=== PATIENT | male | born 1980 | race Caucasian/White ===

== ENCOUNTER 2021-10-26 06:58 | Day surgery (SDC) | payer OTHER ==
[2021-10-25 10:39] LABS: CLARITY,URINE CLEAR (Clear); COLOR,URINE YELLOW (Yellow); GLUCOSE, URINE NEGATIVE (Neg); KETONES,URINE NEGATIVE (Neg); LEUKOCYTE ESTERASE ,URINE NEGATIVE (Neg); NITRITES, URINE NEGATIVE (Neg); OCCULT BLOOD,URINE NEGATIVE (Neg); PROTEIN,URINE NEGATIVE (Neg); UROBILINOGEN,URINE 0.2 E.U/dL (0.2-1.0)
[2021-10-25 10:47] LABS: UA COLLECTION TYPE NON-SPECIFIED
[2021-10-25 11:04] LABS: EOSINOPHILS # (AUTO) 0.2 X10'3 (0-0.9); EOSINOPHILS % (AUTO) 3.9 % (0-6); LYMPHOCYTES # (AUTO) 1.4 X10'3 (1.1-4.8); LYMPHOCYTES % (AUTO) 27.7 % (21-51); MEAN CORPUSCULAR HEMOGLOBIN 31.4 PG (27.0-31.0); MEAN CORPUSCULAR HGB CONC 34.6 g/dL (33.0-36.5); MEAN CORPUSCULAR VOLUME 90.5 FL (78-98); MEAN PLATELET VOLUME 8.6 FL (7.4-10.4); MONOCYTES # (AUTO) 0.4 X10'3 (0-0.9); MONOCYTES % (AUTO) 8.2 % (2-12); NEUTROPHILS # (AUTO) 2.9 X10'3 (1.8-7.7); NEUTROPHILS % (AUTO) 59.2 % (42-75); PRE OP HEMATOCRIT 42.6 % (42.0-52.0); PRE OP HEMOGLOBIN 14.8 g/dL (14.0-17.9); PRE OP PLATELET COUNT 232 X10'3 (140-440); RED CELL DISTRIBUTION WIDTH 12.5 % (11.5-14.5)
[2021-10-25 13:22] LABS: ALBUMIN 4.2 G/DL (3.4-5.0); ALBUMIN/GLOBULIN RATIO 1.6 (1.1-1.5); ALKALINE PHOSPHATASE 68 IU/L (46-116); BLOOD UREA NITROGEN 18 MG/DL (7-18); BUN/CREATININE RATIO 13.3 (5.4-32.0); CALCIUM 8.6 MG/DL (8.5-10.1); CHLORIDE 106 MMOL/L (99-107); CREATININE 1.35 MG/DL (0.60-1.10); PRE OP ALT 30 U/L (30-65); PRE OP ANION GAP 11 (8-16); PRE OP AST 21 U/L (10-37); PRE OP BILIRUB, TOTAL 0.5 MG/DL (0.0-1.0); PRE OP GLUCOSE 100 MG/DL (70-104); PRE OP POTASSIUM 4.7 MMOL/L (3.4-5.1); PRE OP SODIUM 143 MMOL/L (135-145); TOTAL CARBON DIOXIDE 26.5 MMOL/L (24-32); TOTAL PROTEIN 6.9 G/DL (6.4-8.2); eGFR 59 ML/MIN
[~2021-10-26] VITALS: Ht 188 cm; Wt 91.3 kg
[2021-10-26] VITALS (9 sets, daily range): BP systolic 114–131; BP diastolic 78–90
[~2021-10-26 06:58] MED LIST: ACET-812 PO; IBUP-1986 PO; cefazolin/dext.iso 2gm/50ml IV ONE; famotidine 20mg tablet PO ONE; ringers solution, lacted 1,000 ML IV SCH
[2021-10-26] MEDS ORDERED: bacitracin 15gm ointment TP ONE (08:30)
[2021-10-26] MEDS ORDERED: meperidine/PF 25mg/ml syringe IV PRN ×2 (08:40)
[2021-10-26] MEDS ORDERED: labetalol 20mg/4ml (5mg/ml) syringe IV PRN (08:40)
[2021-10-26] MEDS ORDERED: ROPIVAcaine 0.2%/PF PUMP/bolus 545 ML POPLITEAL SCH (08:40)
[2021-10-26] MEDS ORDERED: proCHLORperazine 10 MG/2 ml inj IV PRN (08:40)
[2021-10-26] MEDS ORDERED: morphine 2 MG/ML inj. syringe IV PRN (08:40)
[2021-10-26] MEDS ORDERED: ondansetron/PF 4mg/2ml inj IV PRN (08:40)
[2021-10-26] MEDS ORDERED: ringers solution, lacted 1,000 ML IV SCH (08:40)
[2021-10-26] MEDS ORDERED: acetaminophen 1,000mg/100ml IV 100 ML IV PRN (08:40)
[2021-10-26] MEDS ORDERED: hydrALAZINE 20mg/ml inj. IV PRN (08:40)
[2021-10-26] MEDS ORDERED: ROPIVAcaine 0.2% (10 MG/5 ML) BOLUS INJECTION POPLITEAL PRN (08:40)
[2021-10-26] MEDS ORDERED: midazolam 1 mg/ML 2ml injection ONE (08:47)
[2021-10-26] MEDS ORDERED: fentaNYL /PF 50mcg/ml 5ml ampule ONE (08:50)
[2021-10-26] MEDS ORDERED: sevoflurane 250ml liquid IH ONE (08:51)
[2021-10-26] MEDS ORDERED: dexamethasone sod phosphate 4mg/ml inj. ONE ×2 (09:50→09:51)
[2021-10-26] MEDS ORDERED: ROPIVAcaine 0.5% (5mg/ml) 30ml vial ONE (09:50)
[2021-10-26] MEDS ORDERED: ondansetron/PF 4mg/2ml inj ONE (09:50)
[2021-10-26] MEDS ORDERED: LIDOcaine 2% (20mg/ml) 5ml vial ONE (09:50)
[2021-10-26] MEDS ORDERED: propofol inj 20 ML IV ONE (09:50)
[2021-10-26] MEDS ORDERED: 0.9 % SODIUM CHLORIDE 10 ML VIAL ONE ×2 (09:51)
--- NOTE | 2021-10-26 11:07 | NUR ---
Received from OR via [facility] IN STABLE CONDITION , accompanied by Anesthesiologist and RATE SETTER report given by RATE SETTER AND Anesthesiolgist. Addendum: 10/26/21 at 1205 by Gela Henning RN Amended: Links added.
[2021-10-26] MEDS: meperidine/PF 25mg/ml syringe IV PRN ×2 (11:18→11:33)
[2021-10-26] MEDS: morphine 4 MG/ML inj SYRINge IV PRN ×2 (11:49→12:15)
[2021-10-26] MEDS ORDERED: oxyCODONE IR 5mg (immed. release) tablet PO ONE (12:15)
--- NOTE | 2021-10-26 12:47 | NUR ---
PATIENT DISCHARGED FROM PACU IN STABLE CONDITION AFTER WRITTEN AND VERBAL DISCHARGE INSTRUCTIONS GIVEN. PATIENT GAVE VERBAL UNDERSTANDING OF INSTRUCTIONS GIVEN. PATIENT LEFT FACILITY VIA WHEELCHAIR WITH RN. Addendum: 10/26/21 at 1324 by Gela Henning RN Amended: Links added.
== END 2021-10-26 12:47 | disposition home or self-care (01) ==
LOC: PAS 06:58
PROVIDERS: ATTEND Podiatrist Foot & Ankle Surgery
DX: S82.52XA Displaced fracture of medial malleolus of left tibia, initial encounter for closed fracture (principal); S86.012A Strain of left Achilles tendon, initial encounter; G89.18 Other acute postprocedural pain; G47.33 Obstructive sleep apnea (adult) (pediatric); Z20.822 Contact with and (suspected) exposure to COVID-19; Z98.890 Other specified postprocedural states; Z79.82 Long term (current) use of aspirin; X58.XXXA Exposure to other specified factors, initial encounter; Y93.89 Activity, other specified; Y92.89 Other specified places as the place of occurrence of the external cause; Y99.8 Other external cause status
CPT/HCPCS: 27650; 27766; 36415; 64446; 64447; 73600; 76000; 76942; 80053; 81003; 85025; 87635; A6223; C1713; C9803; J0131; J0690; J1100; J2175; J2250; J2270; J2405; J2704; J2795; J3010; J3490; J7030; J7120; Z7506; Z7508; Z7512; A4215; A4618; A6253; A6449; A7000

== ENCOUNTER 2022-04-12 05:26 | Day surgery (SDC) | payer OTHER ==
[2022-04-10 08:55] LABS: CLARITY,URINE CLEAR (Clear); COLOR,URINE YELLOW (Yellow); GLUCOSE, URINE NEGATIVE (Neg); KETONES,URINE NEGATIVE (Neg); LEUKOCYTE ESTERASE ,URINE NEGATIVE (Neg); NITRITES, URINE NEGATIVE (Neg); OCCULT BLOOD,URINE NEGATIVE (Neg); PROTEIN,URINE NEGATIVE (Neg); UROBILINOGEN,URINE 0.2 E.U/dL (0.2-1.0)
[2022-04-10 08:59] LABS: UA COLLECTION TYPE CLN CATCH MIDSTREAM
[2022-04-10 08:59] LABS: BASOPHILS # (AUTO) 0.1 X10'3 (0-0.2); BASOPHILS % (AUTO) 1.3 % (0-1); EOSINOPHILS # (AUTO) 0.1 X10'3 (0-0.9); EOSINOPHILS % (AUTO) 1.8 % (0-6); LYMPHOCYTES # (AUTO) 1.7 X10'3 (1.1-4.8); LYMPHOCYTES % (AUTO) 34.4 % (21-51); MEAN CORPUSCULAR HGB CONC 34.1 g/dL (33.0-36.5); MONOCYTES # (AUTO) 0.4 X10'3 (0-0.9); MONOCYTES % (AUTO) 8.7 % (2-12); NEUTROPHILS # (AUTO) 2.7 X10'3 (1.8-7.7); NEUTROPHILS % (AUTO) 53.8 % (42-75); PRE OP HEMATOCRIT 45.6 % (42.0-52.0); PRE OP HEMOGLOBIN 15.5 g/dL (14.0-17.9); PRE OP PLATELET COUNT 245 X10'3 (140-440); RED BLOOD COUNT 5.01 X10'6 (4.70-6.10)
[2022-04-10 09:18] LABS: ALBUMIN 4.5 G/DL (3.4-5.0); ALBUMIN/GLOBULIN RATIO 1.5 (1.1-1.5); ALKALINE PHOSPHATASE 59 IU/L (46-116); BLOOD UREA NITROGEN 20 MG/DL (7-18); BUN/CREATININE RATIO 17.9 (5.4-32.0); CALCIUM 8.8 MG/DL (8.5-10.1); CHLORIDE 105 MMOL/L (99-107); CREATININE 1.12 MG/DL (0.60-1.10); PRE OP ALT 30 U/L (30-65); PRE OP ANION GAP 8 (8-16); PRE OP AST 14 U/L (10-37); PRE OP BILIRUB, TOTAL 0.6 MG/DL (0.0-1.0); PRE OP GLUCOSE 97 MG/DL (70-104); PRE OP POTASSIUM 3.9 MMOL/L (3.4-5.1); PRE OP SODIUM 141 MMOL/L (135-145); TOTAL CARBON DIOXIDE 27.9 MMOL/L (24-32); TOTAL PROTEIN 7.6 G/DL (6.4-8.2); eGFR 73 ML/MIN
[~2022-04-12] VITALS: Ht 188 cm; Wt 95.4 kg
[2022-04-12] VITALS (10 sets, daily range): BP systolic 117–124; BP diastolic 77–91
[~2022-04-12 05:26] MED LIST changes: -ACET-812 PO; -IBUP-1986 PO; +NO HOME MEDS; -cefazolin/dext.iso 2gm/50ml IV ONE; +dexamethasone sod phosphate 10mg/ml inj ONE; -famotidine 20mg tablet PO ONE; +sevoflurane 250ml liquid IH ONE
[2022-04-12] MEDS ORDERED: famotidine 20mg tablet PO ONE (05:30)
[2022-04-12] MEDS ORDERED: ceFAZolin inj. 2,000 MG in dextrose 5%-water 100 ML IV ONE (05:30)
[2022-04-12] MEDS ORDERED: bacitracin 15gm ointment TP ONE (06:37)
[2022-04-12] MEDS ORDERED: BUPIVAcaine/PF 2.5mg/ml (0.25%) 10ml vial ONE (06:38)
[2022-04-12] MEDS ORDERED: fentaNYL/PF 50MCG/1 ML 2ML syringe ONE (07:13)
[2022-04-12] MEDS ORDERED: midazolam 1 mg/ML 2ml injection ONE (07:13)
[2022-04-12] MEDS ORDERED: propofol inj 20 ML IV ONE (07:19)
[2022-04-12] MEDS ORDERED: LIDOcaine 2% (20mg/ml) 5ml vial ONE (07:19)
[2022-04-12] MEDS ORDERED: ondansetron/PF 4mg/2ml inj ONE (07:19)
[2022-04-12] MEDS ORDERED: ondansetron/PF 4mg/2ml inj IV PRN (07:30)
[2022-04-12] MEDS ORDERED: morphine 2 MG/ML inj. syringe IV PRN (07:30)
[2022-04-12] MEDS ORDERED: meperidine/PF 25mg/ml syringe IV PRN ×3 (07:30)
[2022-04-12] MEDS ORDERED: ringers solution, lacted 1,000 ML IV SCH (07:30)
[2022-04-12] MEDS ORDERED: proCHLORperazine 10 MG/2 ml inj IV PRN (07:30)
[2022-04-12] MEDS ORDERED: morphine 4 MG/ML inj SYRINge IV PRN (07:30)
[2022-04-12] MEDS ORDERED: ketorolac trometh. 30mg/ml inj. ONE (07:57)
--- NOTE | 2022-04-12 08:15 | NUR ---
Received from OR via [facility] , accompanied by Anesthesiologist DULCE MARIA and report given by Anesthesiolgist. PT IS GROGGY BUT WAKES TO VERBAL STIMULI AND MOVES ALL EXTREMITIES. PT PLACED ON BEDSIDE MOINTOR, VSS. PT IS ON RA AND TOLERATING WELL WITH O2 SAT >95%. PT IS IN NSR WITH RATE IN 70'S. PT HAS 20G PIV TO LT HAND WITH LR INFUSING. PT HAS DRSG/MICHAEL WRAP TO LEFT ANKLE THAT IS CDI. PT DENIES PAIN WT THIS TIME. WILL CONTINUE TO ASSESS.
--- NOTE | 2022-04-12 09:50 | NUR ---
ALL DISCHARGE CRITERIA HAS BEEN MET. VSS, PAIN AT A TOLERABLE LEVEL, VOIDING AND ABLE TO SAFELY AMBULATE AND TRANSFER SELF. IV TAKEN OUT WITHOUT ANY COMPLICATIONS. ALL DISCHARGE INSTRUCTIONS COVERED WITH PATIENT AND ALL QUESTIONS ANSWERED. PATIENT TAKEN OUT VIA WHEELCHAIR TO PERSONAL VEHICLE WHERE MOTHER DROVE PATIENT HOME.
== END 2022-04-12 09:49 | disposition home or self-care (01) ==
LOC: PAS 05:26
PROVIDERS: ATTEND Podiatrist Foot & Ankle Surgery
DX: T84.84XA Pain due to internal orthopedic prosthetic devices, implants and grafts, initial encounter (principal); G47.30 Sleep apnea, unspecified; Y83.8 Other surgical procedures as the cause of abnormal reaction of the patient, or of later complication, without mention of misadventure at the time of the procedure; Z79.899 Other long term (current) drug therapy; Z98.890 Other specified postprocedural states
CPT/HCPCS: 20680; 36415; 80053; 81003; 82948; 85025; A6223; J0690; J1885; J2250; J2405; J2704; J3010; J3490; J7030; J7060; J7120; Z7506; Z7508; Z7512; A4215; A4615; A4618; A6449; A7000